=== PATIENT | male | born 1960 | race Caucasian/White ===

== ENCOUNTER 2023-09-21 14:32 | Outpatient (CLI) | payer BC, SELFPAY ==
[2023-09-21 19:24] LABS: Free T4 Free Thyroxine 1.05 ng/mL (0.78-2.19)
== END 2023-09-21 14:33 | disposition home or self-care (01) ==
LOC: ANHWCLAB 14:34
PROVIDERS: PCP Internal Medicine; Visit Provider Internal Medicine Endocrinology, Diabetes & Metabolism
DX: E05.90 Thyrotoxicosis, unspecified without thyrotoxic crisis or storm (principal)
CPT/HCPCS: 36415; 84439; 84443